=== PATIENT | female | born 1985 | race American Indian/Alaskan Native ===

== ENCOUNTER 2016-06-16 11:57 | Emergency (ER) | payer OTHER ==
[2016-06-16 12:18] VITALS: BP 127/89
--- NOTE | 2016-06-16 15:29 | Emergency Department Report ---
HPI - General Chief Complaint: Skin/Abscess/Foreign Body Time Seen by Provider: 06/16/16 15:22 - HPI HPI: 31-year-old female medical history presents with complaint of drainage from left side inner thigh/groin region 3 days. Denies fever or chills no difficulty urinating denies any vaginal discharge or vaginal involvement of lesion or drainage. States that it bothers her as she walks because it rubs against her inner thigh. Minimal amount of pus drainage and bleeding. ED Past Medical Hx - Past Medical History Previous Medical History?: No - Surgical History Past Surgical History?: No - Social History Smoking Status: Never Smoker Substance Use Type: Alcohol - Medications Home Medications: Home Medications Medication Instructions Recorded Confirmed Last Taken Type Acetaminophen/Codeine 1 - 2 tab PO Q6H PRN #25 tab 05/18/14 Unknown Rx [Acetaminophen-Codeine #3 TAB] Penicillin Vk [Veetids TAB] 500 mg PO QID #40 tablet 05/18/14 Unknown Rx Ibuprofen [Motrin 800 MG tab] 800 mg PO Q8HR PRN #30 tablet 02/29/16 Unknown Rx Cephalexin [Keflex] 500 mg PO BID #14 capsule 06/16/16 Unknown Rx Ibuprofen [Motrin] 600 mg PO Q8H PRN #25 tablet 06/16/16 Unknown Rx Sulfamethoxazole/Trimethoprim 1 each PO BID #14 tablet 06/16/16 Unknown Rx [Bactrim DS TAB] ED Review of Systems ROS: Stated complaint: BOIL ON LEFT UPPER LEG Other details as noted in HPI Physical Exam - Physical Exam Vital Signs: Vital Signs 06/16/16 12:15 Temperature 98 F Pulse Rate 92 H Respiratory 20 Rate Blood Pressure 127/89 O2 Sat by Pulse 100 Oximetry General: General: Well appearing, well nourished, in no distress. Oriented x 3, normal mood and affect . Ambulating without difficulty. Head: Normocephalic, atraumatic, no visible or palpable masses, depressions, or scaring. Neck: Supple, without lesions, bruits, or adenopathy, thyroid non-enlarged and non-tender Heart: No cardiomegaly or thrills; regular rate and rhythm, no murmur or gallop Lungs: Clear to auscultation and percussion Abdomen: Bowel sounds normal, no tenderness, organomegaly, masses, or hernia Back: Spine normal without deformity or tenderness, no CVA tenderness Musculoskeletal: Normal gait and station. No misalignment, asymmetry, crepitation, defects,tenderness, masses, effusions, decreased range of motion, instability, atrophy or abnormal strength or tone in the head, neck, spine, ribs , pelvis or extremities. Neurologic: CN 2-12 normal. G/U: Abscess spontaneously draining left inner groin region, no vaginal involvement. Minor purulent drainage on palpation of area, no visible or appreciable cellulitis or induration, minimal amount of fluctuance directly underneath abscess had, spontaneously oozing pus ED Course Vital Signs 06/16/16 12:15 Temperature 98 F Pulse Rate 92 H Respiratory 20 Rate Blood Pressure 127/89 O2 Sat by Pulse 100 Oximetry ED Medical Decision Making - Medical Decision Making A/P: Abscess, groin 1-abscess already spontaneously draining. I advised patient to use sitz bath and warm compresses. I patient to take warm baths and constantly check on abscess throughout the next several days to assure it does not reaccumulate 2-Keflex and Bactrim twice a day 7 days, Motrin 600 mg when necessary 3-advised patient to return to the ED if she notices any evidence of cellulitis , any fever or chills any reaccumulation of abscess Critical care attestation.: If time is entered above; I have spent that time in minutes in the direct care of this critically ill patient, excluding procedure time. ED Disposition Clinical Impression: Abscess of groin, left Disposition: DISCHARGED TO HOME OR SELFCARE Is pt being admited?: No Does the pt Need Aspirin: No Condition: Stable Instructions: Abscess (ED), Sitz Bath (GEN) Prescriptions: Sulfamethoxazole/Trimethoprim [Bactrim DS TAB] 1 each PO BID #14 tablet Cephalexin [Keflex] 500 mg PO BID #14 capsule Ibuprofen [Motrin] 600 mg PO Q8H PRN #25 tablet PRN Reason: Pain Referrals: PRIMARY CAREMD [Primary Care Provider] - 3-5 Days JENAE MAYNARD MD [Staff Physician] - 3-5 Days [facility] [Outside] - 3-5 Days Time of Disposition: 15:27
== END 2016-06-16 16:32 | disposition home or self-care (01) ==
LOC: ED 11:57
DX: L02.214 Cutaneous abscess of groin (principal)
CPT/HCPCS: 99282